=== PATIENT | female | born 1970 | race Caucasian/White ===

== ENCOUNTER → 2021-02-08 | Outpatient (CLI) | payer BC ==
--- NOTE | 2021-02-08 12:28 | P.STRESS ---
- Stress Test Note Stress Test Results/Findings: Exam Performed: stress test Exam Date: 02/08/21 Reason for Exam: CP Height: 6 ft Weight: 218 kg Protocol: LEONELA Stage: III Duration of Exercise: 8 Resting Heart Rate: 75 Resting Blood Pressure: 128/74 Maximum Achieved Heart Rate: 145 Maximum Achieved Blood Pressure: 189/75 85% PMHR: 145 100% PMHR: 171 METS: 9.7 Technologist Comment: Stress Test Results/Findings: This is a 50-year-old female being evaluated for symptoms of chest pain. Stress data: Baseline EKG showed sinus rhythm with QRS duration. Blood pressure at rest is 128/84 with pulse rate of 75. Patient walked on the Leonela protocol for 8 minutes achieving a maximal heart rate of 145 with a blood pressure 156/70. EKGs taken during and after exercise did not reveal any significant changes from the baseline. Final impression: #1. Negative stress test #2 patient did not expense any chest pain #3. About average exercise capacity. 4. No arrhythmias noted
--- NOTE | 2021-02-08 12:43 | ECHOF ---
Referral Reason:R00.2 palpitations R07.9 chest pain MEASUREMENTS -------- HEIGHT: 182.9 cm WEIGHT: 98.9 kg BP: RVIDd: 2.7 cm (< 3.3) IVSd: 0.9 cm (0.6 - 1.1) LVIDd: 4.6 cm (3.9 - 5.3) LVPWd: 1.2 cm (0.6 - 1.1) IVSs: 1.3 cm LVIDs: 3.2 cm LVPWs: 1.5 cm LA Diam: 3.3 cm (2.7 - 3.8) LAESV Index (A-L): 22.96 ml/m Ao Diam: 2.5 cm (2.0 - 3.7) AV Cusp: 1.9 cm (1.5 - 2.6) LA Diam: 3.4 cm (2.7 - 3.8) MV EXCURSION: 15.965 mm (> 18.000) MV EF SLOPE: 110 mm/s (70 - 150) EPSS: 0.2 cm MV E Zhou: 0.70 m/s MV DecT: 173 ms MV A Zhou: 0.71 m/s MV E/A Ratio: 0.98 RAP: 5.00 mmHg RVSP: 26.90 mmHg FINDINGS -------- Sinus rhythm. This was a technically good study. LV size, wall thickness and systolic function are normal, with an EF greater than 55%. The left korey tricular size is normal. Overall left ventricular systolic function is low-normal with, an EF betwe en 50 - 55 %. The right ventricle is normal in size. Normal LA size by volume 22+/-6 ml/m2. The right atrial size is normal. The aortic valve is trileaflet, and appears structurally normal. No aortic stenosis or regurgitation. Mild mitral regurgitation is present. Mild tricuspid regurgitation present. Right ventricular systolic pressure is normal at < 35 mmHg. There is no pulmonic regurgitation present. The aortic root size is normal. There is no pericardial effusion. CONCLUSIONS -------- 1. LV size, wall thickness and systolic function are normal, with an EF greater than 55%. 2. The left ventricular size is normal. 3. Overall left ventricular systolic function is low-normal with, an EF between 50 - 55 %. 4. The right ventricle is normal in size. 5. Normal LA size by volume 22+/-6 ml/m2. 6. The right atrial size is normal. 7. The aortic valve is trileaflet, and appears structurally normal. No aortic stenosis or regurgitati on. 8. Mild mitral regurgitation is present. 9. Mild tricuspid regurgitation present. 10. The aortic root size is normal. 11. There is no pericardial effusion. CONTRACT ATTORNEY: Marichuy Barboza RDCS
== END | disposition home or self-care (01) ==
LOC: RADECHMAIN 08:34
PROVIDERS: ATTEND Family Medicine
DX: I08.1 Rheumatic disorders of both mitral and tricuspid valves (principal); R07.9 Chest pain, unspecified
CPT/HCPCS: 93017; 93306